=== PATIENT | female | born 1965 | race Caucasian/White ===

== ENCOUNTER 2019-07-17 10:23 | Outpatient (CLI) | payer OTHER, SELFPAY ==
--- NOTE | 2019-07-17 06:00 | DI.RAD_ITS ---
EXAM: XR PAIN CLINIC LUMBAR SP 2V CLINICAL HISTORY: Dx:Lumbar Spondylosis. TECHNIQUE: Fluoroscopy was provided for the referring physician for guidance with performing injecti on procedure. COMPARISON: No exams were available for comparison FINDINGS: Please see procedure note for details. Fluoro time: 61.3 s, 18.69 mGy RADIATION DOSE DELIVERED:
[2019-07-17 10:33] VITALS: BP 110/67; PULSE 88; RESP 17; TEMP 36.7; O2SAT 98
[2019-07-17 11:20] VITALS: BP 119/100; PULSE 98; RESP 22; O2SAT 98
[2019-07-17] MEDS: Bupivacaine 0.5% Pres-Free 10 ML VIAL IJ (11:22)
[2019-07-17] MEDS: Omnipaque 240 MG/ML 50 ML BTL IJ (11:22)
--- NOTE | 2019-07-17 13:55 | PDOC.PAIN_ITS ---
Pain Clinic Procedure Note Procedure Note Procedure Note: Lumbar/Sacral Medial Branch Blocks ANTHONY LOONEY has been [facility] for lumbar/sacral medial branch blocks. COMMENTS: I did review her evaluation from our clinic (06/30/19) and her lumbar spine MRI (01/27/19). This is her first LMBB. DX: Lumbosacral spondylosis Patient was interviewed and the medical record reviewed. There were no medical, pharmacologic, radiographic or other structural contraindications to attempting fluoroscopically guided local anesthetic lumbar/sacral medial branch blocks. Risks and expected side effects as well as potential benefit of the procedure were reviewed and voiced concerns addressed. The printed consent form was signed and witnessed. Standard time-out procedure was performed. Patient was placed in the prone position on the fluoroscopy table and automated blood pressure cuff and pulse oximeter applied. The skin entry points for approaching the anatomic target points of the segmental medial branches of bilateral L3, L4, and L5DR were identified with anfluoroscopy and marked. Following thorough Chlorhexadine preparation of the skin and draping and 1% lidocaine infiltration of the skin entry points and subcutaneous tissues, a 22 gauge spinal needle was placed under fluoroscopic guidance down on to the target point for each respective segmental medial branch.Position was confirmed in A/P, oblique and lateral views with 0.25ml of omnipaque 240. At that point, I injected 0.5 cc of 0.5% Bupivacaine. Vital signs were stable throughout the procedure and were as recorded in the docflowsheet by the nursing staff. Follow up plans and appointments were discussed and was instructed to keep careful note of how the usual pain was modified by these injections. Specifically was asked to keep a pain diary for the next 24 hours using a nume anny pain scale of 0-10 and report these results at the follow-up visit. Post procedure instruction was given as documented in the nursing documentation and having met discharge criteria. Patient was discharged from the [facility]. Based on the medial branches blocked today, if the patient has adequate relief and we are able to proceed to radiofrequency ablation, the treatment should result in the denervation of the bilateral L4-L5 and L5-S1 FACET JOINTS. We would expect to denervate a total of 4 facets during the radiofrequency ablation. COMMENTS: She will call back with her 1-4 hour post-procedure pain scores. CC: Jose Angel Boswell
== END 2019-07-17 10:43 ==
PROVIDERS: PCP Internal Medicine; Visit Provider Preventive Medicine Occupational Medicine
DX: M47.817 Spondylosis without myelopathy or radiculopathy, lumbosacral region (principal)
CPT/HCPCS: 64493; 64494; 72100; 76000; Q9967

== ENCOUNTER 2019-07-24 13:52 | Outpatient (CLI) | payer OTHER, SELFPAY ==
--- NOTE | 2019-07-24 06:00 | DI.RAD_ITS ---
EXAM: XR PAIN CLINIC LUMBAR SP 2V CLINICAL HISTORY: Dx:Lumbar Spondylosis TECHNIQUE: COMPARISON: No exams were available for comparison FINDINGS: C-arm fluoroscopy utilized by Dr. Wang during reported lumbar medial branch block. Hard copies show needle placement at L3-4, L4-5, and L5-S1 levels bilaterally. Fluoro time, 58.5 seconds. IMPRESSION:
[2019-07-24 14:00] VITALS: BP 105/68; PULSE 83; RESP 18; TEMP 36.4; O2SAT 98
--- NOTE | 2019-07-24 14:31 | PDOC.PAIN ---
Pain Clinic Procedure Note dd Procedure Note Procedure Note: Lumbar/Sacral Medial Branch Blocks #2 ANTHONY LOONEY has been referred to the [facility] for lumbar/sacral medial branch blocks. 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 There were no medical, pharmacologic, radiographic or other structural contraindications to attempting fluoroscopically guided local anesthetic lumbar/sacral medial branch blocks. Risks and expected side effects as well as potential benefit of the procedure were reviewed and voiced concerns addressed. The printed consent form was signed and witnessed. Standard time-out procedure was performed. Patient was placed in the prone position on the fluoroscopy table and automated blood pressure cuff and pulse oximeter applied. The skin entry points for approaching the anatomic target points of the segmental medial branches of bilateral L4-L5 and L5-S1 were identified with anfluoroscopy and marked. Following thorough Chlorhexadine preparation of the skin and draping and 1% lidocaine infiltration of the skin entry points and subcutaneous tissues, a 22 gauge spinal needle was placed under fluoroscopic guidance down on to the target point for each respective segmental medial branch.Position was confirmed in A/P, oblique and lateral views with 0.25ml of omnipaque 240. At this point I injected 0.5cc of 2% Lidocaine and removed the needles without difficulty. Vital signs were stable throughout the procedure and were as recorded in the docflowsheet by the nursing staff. Follow up plans and appointments were discussed and was instructed to keep careful note of how the usual pain was modified by these injections. Specifically was asked to keep a pain diary for the next 24 hours using a numeric pain scale of 0-10 and report these results at the follow-up visit. Post procedure instruction was given as documented in the nursing documentation and having met discharge criteria. Patient was discharged from the [facility]. Based on the medial branches blocked today, if the patient has adequate relief and we are able to proceed to radiofrequency ablation, the treatment should result in the denervation of the bilateral L4-L5 and L5-S1 FACET JOINTS. We would expect to denervate a total of 4 facets during the radiofrequency ablation. COMMENTS: She will call with her 1-4 hour post-procedure pain logs. CC: Jose Angel Boswell
[2019-07-24 14:38] VITALS: BP 115/64; PULSE 68; RESP 22; O2SAT 100
[2019-07-24] MEDS: Lidocaine 2% Pres-Free 5 ML VIAL IJ (14:39)
[2019-07-24] MEDS: Omnipaque 240 MG/ML 50 ML BTL IJ (14:39)
== END 2019-07-24 14:12 ==
PROVIDERS: PCP Internal Medicine; Visit Provider Preventive Medicine Occupational Medicine
DX: M47.817 Spondylosis without myelopathy or radiculopathy, lumbosacral region (principal)
CPT/HCPCS: 64493; 64494; 72100; Q9967